=== PATIENT | female | born 1995 | race Two or more races ===

== ENCOUNTER 2021-02-15 22:52 | Emergency (ER) | payer OTHER ==
[~2021-02-15] VITALS: Ht 170.2 cm; Wt 68.0 kg
[2021-02-15] MEDS ORDERED: ULTRAM50 MG (23:23)
[2021-02-16] MEDS ORDERED: DUI500 PO (05:16)
[2021-02-16] MEDS ORDERED: ACETAMINOPHEN650 M2 PO (05:16)
[2021-02-16] MEDS ORDERED: INTESTINEX680 M2 PO (05:16)
== END 2021-02-16 | disposition home or self-care (01) ==
LOC: ER 22:52
DX: N83.202 Unspecified ovarian cyst, left side (principal)

== ENCOUNTER 2021-03-06 18:06 | Emergency (ER) | payer OTHER ==
[~2021-03-06] VITALS: Ht 170.2 cm; Wt 68.0 kg
[~2021-03-06 18:06] MED LIST: ACETAMINOPHEN650 M2 PO; DUI500 PO; INTESTINEX680 M2 PO; ULTRAM50 MG
[2021-03-06] MEDS ORDERED: MACROBID 100 M100 MG PO (20:29)
== END 2021-03-06 20:52 | disposition home or self-care (01) ==
LOC: ER 18:06
DX: O46.8X1 Other antepartum hemorrhage, first trimester (principal); O23.41 Unspecified infection of urinary tract in pregnancy, first trimester; Z3A.01 Less than 8 weeks gestation of pregnancy

== ENCOUNTER 2021-04-21 12:34 | Emergency (ER) | payer OTHER ==
[~2021-04-21] VITALS: Ht 170.2 cm; Wt 71.2 kg
[~2021-04-21 12:34] MED LIST changes: +MACROBID 100 M100 MG PO
== END 2021-04-21 16:12 | disposition home or self-care (01) ==
LOC: ER 12:34
DX: O23.91 Unspecified genitourinary tract infection in pregnancy, first trimester (principal); O26.891 Other specified pregnancy related conditions, first trimester; Z3A.13 13 weeks gestation of pregnancy

== ENCOUNTER 2021-04-22 20:24 | Emergency (ER) | payer OTHER ==
[~2021-04-22] VITALS: Ht 170.2 cm; Wt 63.5 kg
== END 2021-04-23 01:21 ==
LOC: ER 20:24
DX: O44.20 Partial placenta previa NOS or without hemorrhage, unspecified trimester (principal)

== ENCOUNTER 2021-04-29 08:53 | Outpatient (CLI) | payer OTHER | END 2021-04-29 10:00 | disposition home or self-care (01) | LOC: PRENATAL 08:53 | PROVIDERS: ATTEND Obstetrics & Gynecology Maternal & Fetal Medicine | DX: O26.851 Spotting complicating pregnancy, first trimester (principal); O36.80X1 Pregnancy with inconclusive fetal viability, fetus 1; Z36.89 Encounter for other specified antenatal screening; Z3A.13 13 weeks gestation of pregnancy ==

== ENCOUNTER 2021-06-05 12:52 | Emergency (ER) | payer OTHER ==
[~2021-06-05] VITALS: Ht 170.2 cm; Wt 69.9 kg
[2021-06-05] MEDS ORDERED: PRENATABS RX T1 EACH PO (13:34)
== END 2021-06-05 17:16 | disposition home or self-care (01) ==
LOC: ER 12:52
DX: U07.1 COVID-19 (principal); E86.0 Dehydration; Z3A.19 19 weeks gestation of pregnancy

== ENCOUNTER 2021-06-14 07:49 | Outpatient (CLI) | payer OTHER ==
[~2021-06-14 07:49] MED LIST changes: +PRENATABS RX T1 EACH PO
== END 2021-06-14 09:20 | disposition home or self-care (01) ==
LOC: PRENATAL 07:49
PROVIDERS: ATTEND Obstetrics & Gynecology Maternal & Fetal Medicine
DX: O35.0XX1 Maternal care for (suspected) central nervous system malformation in fetus, fetus 1 (principal); O35.3XX1 Maternal care for (suspected) damage to fetus from viral disease in mother, fetus 1; O98.512 Other viral diseases complicating pregnancy, second trimester; O44.02 Complete placenta previa NOS or without hemorrhage, second trimester; Z36.89 Encounter for other specified antenatal screening; Z3A.21 21 weeks gestation of pregnancy

== ENCOUNTER 2021-08-21 13:13 | Outpatient (CLI) | payer OTHER | END 2021-08-21 14:26 | disposition home or self-care (01) | LOC: NST 13:13 | PROVIDERS: ATTEND Obstetrics & Gynecology | DX: Z34.83 Encounter for supervision of other normal pregnancy, third trimester (principal) ==

== ENCOUNTER 2021-10-16 13:00 | Inpatient (IN) | payer OTHER ==
[~2021-10-16] VITALS: Ht 170.2 cm; Wt 84.8 kg
[2021-10-31] MEDS ORDERED: INTEGRA PLUS C1 EACH PO (09:31)
== END 2021-10-31 12:48 | disposition home or self-care (01) | DRG 807 ==
LOC: OB/GYN 10-27 13:00 → SURG-SUITE 10-29 09:21 → LDR 10-29 09:21 → SURG-SUITE 10-29 21:11
PROVIDERS: ADMIT Obstetrics & Gynecology; ATTEND Obstetrics & Gynecology
PROC: 10E0XZZ Delivery of Products of Conception, External Approach (ICD-10-PCS; principal; 2021-10-29)
PROC: 0W8NXZZ Division of Female Perineum, External Approach (ICD-10-PCS; 2021-10-29)
PROC: 4A1HXCZ Monitoring of Products of Conception, Cardiac Rate, External Approach (ICD-10-PCS; 2021-10-29)
DX: O80 Encounter for full-term uncomplicated delivery (principal); Z37.0 Single live birth; Z3A.40 40 weeks gestation of pregnancy; Z20.822 Contact with and (suspected) exposure to COVID-19

== ENCOUNTER 2025-05-19 09:21 | Emergency (ER) | payer OTHER ==
[~2025-05-19] VITALS: Ht 170.2 cm; Wt 68.0 kg
[~2025-05-19 09:21] MED LIST changes: +INTEGRA PLUS C1 EACH PO
[2025-05-19 09:27] VITALS: BP 124/82; O2SAT 100
[2025-05-19] MEDS ORDERED: ACETAMINOPHEN 500 MG GEL..CAP PO ONE ×2 (09:54→10:00)
[2025-05-19 10:44] LABS: URINE APPEARANCE Clear; URINE BILIRRUBIN Negative (NEGATIVE); URINE BLOOD Negative; URINE COLOR Yellow; URINE GLUCOSE Negative (NEGATIVE); URINE KETONE Negative (NEGATIVE); URINE LEUKOCYTE Moderate; URINE NITRATE Negative; URINE PROTEIN Negative (NEGATIVE); URINE UROBILINOGEN 0.2 E.U./dl
[2025-05-19 10:47] LABS: URINE BACTERIA 1578.6 uL (0.0-1933); URINE EPITHELIAL CELLS 57.3 uL (0.0-38.8); URINE RBC 5.5 uL (0.0-20.8); URINE WBC 176.0 uL (0.0-23.2)
[2025-05-19 12:08] LABS: URINE CAST 0.14 uL (0.0-1.40)
== END 2025-05-19 14:03 | disposition home or self-care (01) ==
LOC: ER 09:22
PROVIDERS: Emergency Medicine
DX: O99.891 Other specified diseases and conditions complicating pregnancy (principal); Z3A.01 Less than 8 weeks gestation of pregnancy; S30.0XXA Contusion of lower back and pelvis, initial encounter; W10.0XXA Fall (on)(from) escalator, initial encounter; Y93.89 Activity, other specified; Y92.018 Other place in single-family (private) house as the place of occurrence of the external cause; R10.20 Pelvic and perineal pain unspecified side; Z88.6 Allergy status to analgesic agent